=== PATIENT | female | born 1995 | race Caucasian/White ===

== ENCOUNTER → 2021-06-12 | Outpatient (CLI) | payer OTHER | END | disposition home or self-care (01) | LOC: LABWHC1 09:03 | PROVIDERS: ATTEND Obstetrics & Gynecology | DX: Z36.9 Encounter for antenatal screening, unspecified (principal) | CPT/HCPCS: 36415; 82950; 86850; 86900; 86901 ==

== ENCOUNTER 2021-07-26 10:45 | Outpatient (CLI) | payer OTHER ==
[2021-07-26 15:33] VITALS: BP 132/81; PULSE 87; RESP 16; TEMP 98
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
== END 2021-07-26 11:40 | disposition home or self-care (01) ==
LOC: FBPOP 10:45
PROVIDERS: ATTEND Obstetrics & Gynecology
DX: Z04.3 Encounter for examination and observation following other accident (principal)
CPT/HCPCS: 59025; G0463; 99213

== ENCOUNTER 2021-08-10 06:17 | Inpatient (IN) | payer OTHER ==
[2021-08-10] MEDS ORDERED: OXYTOCIN 10 UNIT/ML 1 ML VIAL IM PRN (06:46)
[2021-08-10] MEDS ORDERED: TERBUTALINE 1 MG/ML VIAL SQ PRN (06:46)
[2021-08-10] MEDS ORDERED: CARBOPROST TROMETHAMINE 250 MCG/ML 1 ML AMP IM PRN (06:46)
[2021-08-10] MEDS ORDERED: METHYLERGONOVINE 0.2 MG/ML 1 ML AMP IM PRN (06:46)
[2021-08-10] MEDS ORDERED: LIDOCAINE 1% (PF) 10 MG/ML (30 ML SDV) SQ PRN (06:46)
[2021-08-10] MEDS ORDERED: PENICILLIN G POTASSIUM 5,000,000 UNIT in DEXTROSE 5% IN WATER 100 ML IVPB STA ×2 (06:46)
[2021-08-10] MEDS: LACTATED RINGERS 1,000 ML IV SCH ×2 (06:58→11:14)
[2021-08-10] MEDS ORDERED: OXYTOCIN 30 UNITS/500 ML NS 30 UNIT in SALINE 1 500ML.BAG IV SCH (07:00)
[2021-08-10 07:37] LABS: Basophils % (A) 0 %; Eosinophils % (A) 1 %; HCT 35.5 % (34.0-46.0); Lymphocytes # (A) 0.9 k/uL (1.0-4.8); Lymphocytes % (A) 15 %; MCH 32.2 pg (25.0-35.0); MCHC 33.7 g/dL (31.0-37.0); MCV 95.6 fL (80.0-100.0); Mean Platelet Volume 12.4; Monocytes # (A) 0.3 k/uL (0-1.0); Monocytes % (A) 6 %; Neutrophils # (A) 4.8 k/uL (1.3-7.7); Neutrophils % (A) 77 %; Platelet Count 114 k/uL (150-450); RBC 3.71 m/uL (3.80-5.40); RDW 13.3 % (11.5-15.5); WBC 6.2 k/uL (3.8-10.6)
--- NOTE | 2021-08-10 08:03 | P.HPOB ---
History of Present Illness H&P Date: 08/10/21 Chief Complaint: Here for induction of labor with twins at 38 weeks gestation This is a 26-year-old white female 2 para 0010 EDC 08/24/2021 at 38 weeks gestation who presents with known dichorionic diamniotic twins, vertex vertex, for induction of labor. She is having mild spontaneous uterine contractions. Both fetuses have been active. Past surgical history significant for voluntary termination of in 2019, wisdom teeth extracted in 2010. Past medical history is significant for vasovagal syncope, and bicornuate uterus. Current medications vitamins daily, baby aspirin daily. Family history is significant for heart disease, hypertension, lymphoma, colon cancer, bladder cancer, thyroid disease, stomach cancer, dementia. Social history patient is single, father of the baby is present and involved. She rarely smokes marijuana, none with . She denies tobacco alcohol or drug use. ALLERGIES none known. history is significant for blood type O-, father of the baby is negative as well. Pap smear, gonorrhea and chlamydia cultures, urine culture, HIV testing, hepatitis B surface antigen all negative. Antibody screen negative. Group B strep cultures positive. One-hour Glucola 107. On exam patient is 5 foot 8 inches, 192 pounds, vital signs are stable and she is afebrile. The general physical exam is within normal limits, no peripheral edema, chest is clear. Cervix is 1 cm dilated, 70% effaced, -1 station, vertex presentation. Artificial amniorrhexis reveals clear fluid. Bedside ultrasound reveals vertex vertex presentation. heart rate is reactive on both twins. Impression: 38 week intrauterine , known dichorionic, diamniotic twins, all signs reassuring, here for elective induction of labor. Positive group B strep cultures. Plan: Penicillin G prophylaxis has been started and will continue per hospital protocol. Oxytocin per hospital protocol. Continue close maternal and surveillance. Plan is for delivery in the operating room, with anesthesia present, second live ammunition inspector present, ultrasound present to monitor twin B upon delivery of a. Patient and her partner both understand the multiple risks involved in vaginal delivery of twins, all questions answered. Anticipate normal spontaneous vaginal deliveries 2. Analgesic options reviewed. Review of Systems Constitutional: Reports as per HPI Past Medical History History of Any Multi-Drug Resistant Organisms: None Reported Smoking Status: Never smoker Medications and Allergies Home Medications Medication Instructions Recorded Confirmed Type Aspirin 81 mg PO DAILY 07/26/21 08/10/21 History Pnv No.154/Iron Fum/Folic Acid 1 each PO DAILY 07/26/21 08/10/21 History [ Plus Vitamin Tablet] Allergies Allergy/AdvReac Type Severity Reaction Status Date / Time ibuprofen AdvReac Nausea & Verified 08/10/21 06:45 Vomiting Exam Intake and Output 08/09/21 08/10/21 08/10/21 22:59 06:59 14:59 Other: Weight 87.09 kg See dictation under HPI. Results Result Diagrams: 08/10/21 06:45 Abnormal Lab Results - Last 24 Hours (Table) 08/10/21 Range/Units 06:45 RBC 3.71 L (3.80-5.40) m/uL Assessment and Plan Assessment: 38 week intrauterine , known dichorionic diamniotic twins, here for induction of labor, all signs reassuring. Positive group B strep cultures noted. Plan: Penicillin G per hospital protocol. Oxytocin per hospital protocol. Continue close maternal and surveillance. Plan is for delivery in the operating room with anesthesia present, double set up, ultrasound also present to monitor twin B. All risks and benefits of our plan have been thoroughly discussed in detail. All questions answered. Time with Patient: Greater than 30
[2021-08-10 08:57] LABS: Large Platelets Present
[2021-08-10] MEDS ORDERED: BUTORPHANOL 1 MG/ML 1 ML VIAL IV PRN (10:05)
[2021-08-10] MEDS ORDERED: SODIUM CHLORIDE 0.9% 100 ML BAG ONE (10:50)
[2021-08-10] MEDS ORDERED: fentaNYL (PF) 50 MCG/ML 5 ML AMP ONE (10:50)
[2021-08-10] MEDS ORDERED: ROPIVACAINE 5MG/ML 20ML VIAL ONE (10:50)
[2021-08-10] MEDS: PENICILLIN G POTASSIUM 2,500,000 UNIT in DEXTROSE 5% IN WATER 100 ML IVPB SCH ×6 (11:20→22:24)
[2021-08-10] MEDS ORDERED: diphenhydrAMINE 50 MG CAP PO PRN (16:46)
[2021-08-10] MEDS ORDERED: diphenhydrAMINE 25 MG CAP PO PRN (16:46)
[2021-08-10] MEDS ORDERED: HYDROCORTISONE 2.5% RECTAL CREAM 30 GM TUBE RECTAL PRN (16:46)
[2021-08-10] MEDS ORDERED: diphenhydrAMINE ELIXIR 25 MG/10 ML CUP PO PRN (16:46)
[2021-08-10] MEDS ORDERED: LANOLIN CREAM 5 GM TUBE TOPICAL PRN (16:46)
[2021-08-10] MEDS ORDERED: BENZOCAINE/MENTHOL SPRAY 1 GM/SPRAY AEROSOL TOPICAL PRN (16:46)
[2021-08-10] MEDS ORDERED: ZOLPIDEM 5 MG TAB PO PRN (16:46)
[2021-08-10] MEDS ORDERED: diphenhydrAMINE 50 MG/ML 1 ML VIAL IVP PRN ×2 (16:46)
[2021-08-10] MEDS ORDERED: SIMETHICONE 80 MG CHEWABLE PO PRN (16:46)
--- NOTE | 2021-08-10 16:46 | P.PROBDLV ---
Vaginal Delivery Note - . Vaginal Delivery Note: This is a 26-year-old white female 2 para 0010 EDC 08/24/2021 at 38 weeks gestation with known dichorionic diamniotic twins who presented for induction for same. otherwise unremarkable, group B strep cultures positive. Patient and her were counseled thoroughly and elected to proceed with vaginal delivery. Penicillin G prophylaxis was instituted and patient received 2 doses. Oxytocin was started and titrated per hospital protocol. Artificial amniorrhexis of baby A revealed clear fluid. Internal scalp lead was applied. At all times heart tones were reassuring on both twins throughout the first and second stages of labor. Epidural was placed per her request when she became uncomfortable. Patient became completely dilated and was brought back to the operating room under double setup for delivery. Anesthesia staff present, ultrasound also present. The perineal body was prepped and draped in usual sterile fashion. Baby A's head delivered occiput anterior and he restituted accordingly. There was a nuchal cord 1 that was reduced. Patient was officially delivered of a liveborn baby a at 1615 hrs. the oropharynx, nasopharynx, and external nares were thoroughly bulb suction. Umbilical cord was doubly clamped and ligated, he was handed to waiting nurses for evaluation where scores of 8 and 9 were given, Dr. Wayne ambulance attendant in attendance. Ultrasound verified baby B remained vertex. Artificial amniorrhexis of the also revealed clear fluid. When uterine contractions were appropriate, patient once again pushed successfully. Baby delivered in the occiput anterior position and restituted accordingly. No nuchal cord noted. Oropharynx, nasopharynx and external nares were all bulb suctioned thoroughly. Patient officially delivered her second liveborn male at 1625 hrs. Umbilical cord was doubly clamped and ligated, he too was handed to waiting pediatricians for evaluation where scores of 7 and 9 at one and 5 minutes respectively were given. Placentas delivered spontaneously, inspected and noted to be intact with trivascular cord at 1626 hrs. The umbilical cords were marked a and B and it was sent to pathology for evaluation. Uterus is then massaged. Careful inspection of the c ervix, vagina, perineum, periurethral, and perirectal areas revealed a small first-degree labial laceration that was repaired in the usual fashion using a [id number] suture of 3-0 Vicryl suture. Total estimated blood loss 300 mL's. Uterus is firm and in the midline upon completion of delivery. All sponge needle and enhancement counts are correct. Patient is requesting circumcision for her infant son's. Baby A weighed 5 pounds 6.4 ounces or 2450 g, baby B weighs 5 lbs. 13 oz. or 2650 g.
--- NOTE | 2021-08-10 16:48 | US ---
EXAMINATION TYPE: US OB limited DATE OF EXAM: 08/10/2021 COMPARISON: NONE CLINICAL HISTORY: assess for position for twin delivery. Position check for BABY B after BABY A delivery EXAM PERFORMED: Transabdominal (TA) POSITION: Vertex BABY B in cephalic position after deliver of BABY A IMPRESSION: Limited exam. Findings above.
[2021-08-10] MEDS ORDERED: IBUPROFEN 600 MG TAB PO SCH (17:00)
[2021-08-10] MEDS: ACETAMINOPHEN TAB 325 MG TAB PO PRN (19:52)
[2021-08-10] MEDS: SENNOSIDES-DOCUSATE SODIUM 1 EACH TAB PO SCH (20:25)
[2021-08-11 01:43] VITALS: RESP 16
--- NOTE | 2021-08-11 08:03 | P.PN ---
Subjective Progress Note Date: 08/11/21 Principal diagnosis: day #1 Slept well. Minimal lochia rubra. No pain. Breast-feeding going well. Objective - Vital Signs Vital signs: Vital Signs Temp 98.5 F 08/11/21 04:00 Pulse 56 L 08/11/21 04:00 Resp 16 08/11/21 04:00 BP 122/78 08/11/21 04:00 Pulse Ox 97 08/11/21 04:00 Intake & Output 08/10/21 08/11/21 08/11/21 18:59 06:59 18:59 Intake Total 1185.9 Output Total 100 Balance 1085.9 Weight 87.09 kg Intake: IV 1000 Intake, IV Titration 185.9 Amount Oxytocin 30 Units/500 ml 185.9 Ns 30 unit In Saline 1 500ml.bag @ Per Protocol IV .Q0M [facility] Rx#:[id number] Output: Urine 100 Other: # Voids 2 1 - Constitutional General appearance: Present: average body habitus, cooperative - EENT Eyes: Present: PERRLA ENT: Present: hearing grossly normal - Neck Neck: Present: normal ROM - Respiratory Respiratory: bilateral: CTA - Cardiovascular Rhythm: regular - Gastrointestinal General gastrointestinal: Present: normal bowel sounds - Integumentary Integumentary: Present: normal - Neurologic Neurologic: Present: CNII-XII intact - Musculoskeletal Musculoskeletal: Present: gait normal, strength equal bilaterally - Psychiatric Psychiatric: Present: A&O x's 3, appropriate affect, intact judgment & insight - Labs CBC & Chem 7: 08/10/21 06:45 Labs: Abnormal Lab Results - Last 24 Hours (Table) 08/10/21 Range/Units 06:45 Plt Count 114 L (150-450) k/uL Lymphocytes # 0.9 L (1.0-4.8) k/uL Assessment and Plan Assessment: Doing well first day. Plan: Continue care. Patient requesting assistance with . Circumcision on both babies this morning. Likely discharge home tomorrow. Time with Patient: Less than 30
[2021-08-11] MEDS: SENNOSIDES-DOCUSATE SODIUM 1 EACH TAB PO SCH ×2 (09:44→19:45)
[2021-08-11] MEDS: ACETAMINOPHEN TAB 325 MG TAB PO PRN ×2 (13:20→19:45)
[2021-08-12 00:21] VITALS: TEMP 97.7
[2021-08-12] MEDS: ACETAMINOPHEN TAB 325 MG TAB PO PRN ×2 (04:39→12:01)
[2021-08-12] MEDS: SENNOSIDES-DOCUSATE SODIUM 1 EACH TAB PO SCH (08:14)
[2021-08-12 10:30] VITALS: BP 119/79; PULSE 89
--- NOTE | 2021-08-12 10:42 | P.DS ---
Providers Date of admission: 08/10/21 06:17 Expected date of discharge: 08/12/21 Attending physician: Miriam Mobley Primary care physician: Stated None - Discharge Diagnosis(es) (1) Dichorionic diamniotic twin Current Visit: Yes Status: Acute (2) GBS carrier Current Visit: Yes Status: Acute (3) Normal spontaneous vaginal delivery Current Visit: Yes Status: Acute (4) Perineal laceration with delivery, first degree Current Visit: Yes Status: Acute Hospital Course: This is a 26 year old 2 now para 2012 woman who was admitted at 38 weeks gestation for induction of labor. She has a dichorionic diamniotic twin gestation in the vertex vertex presentation. Following admission she received group B strep prophylactic antibiotics. She received oxytocin and artificial rupture of membranes of twin a. She went on to receive an epidural anesthetic. She then had a spontaneous vaginal delivery of both twin A and twin B. Please see the delivery summary for details. Infants were both boys A weighing 6 lbs. 4 oz., B weighing 5 lbs. 13 oz. Both infants were circumcised on day #1. By day #2 the patient is ambulating and voiding without difficulty. She has mild discomfort of the perineum. Her lochia is decreasing. She is breast-feeding successfully however one twin is tongue tied and will have that addressed prior to discharge. The patient is otherwise stable for discharge with routine instructions for care and follow-up. Procedures: Epidural anesthetic, normal spontaneous vaginal delivery twins Patient Condition at Discharge: Good Plan - Discharge Summary New Discharge Prescriptions: New Acetaminophen Tab [Tylenol] 650 mg PO Q4HR PRN tab PRN Reason: Mild Pain Or Fever >= 100.5 Simethicone Chew [Mylicon Chew] 80 mg PO PCHS PRN tab PRN Reason: Indigestion Discontinued Aspirin 81 mg PO DAILY No Action Pnv No.154/Iron Fum/Folic Acid [ Plus Vitamin Tablet] 1 each PO DAILY Discharge Medication List Pnv No.154/Iron Fum/Folic Acid [ Plus Vitamin Tablet] 1 each PO DAILY 07/26/21 [History] Acetaminophen Tab [Tylenol] 650 mg PO Q4HR PRN tab 08/12/21 [Rx] Simethicone Chew [Mylicon Chew] 80 mg PO PCHS PRN tab 08/12/21 [Rx] Follow up Appointment(s)/Referral(s): Miriam Mobley MD [STAFF PHYSICIAN] - 6 Weeks Activity/Diet/Wound Care/Special Instructions: Follow-up in the office in 6 weeks . Call with any concerning signs or symptoms including heavy vaginal bleeding, severe abdominal pain, fever greater than 101, swelling or redness of the lower extremities, foul vaginal discharge, or signs of depression. Nothing in the vagina for 6 weeks after delivery, specifically no intercourse. Discharge Disposition: HOME SELF-CARE
== END 2021-08-12 12:40 | disposition home or self-care (01) | DRG 807 ==
LOC: 4FBP 06:17
PROVIDERS: ADMIT Obstetrics & Gynecology; ATTEND Obstetrics & Gynecology
PROC: 10E0XZZ Delivery of Products of Conception, External Approach (ICD-10-PCS; principal; 2021-08-10)
PROC: 0HQ9XZZ Repair Perineum Skin, External Approach (ICD-10-PCS; 2021-08-10)
PROC: 10907ZC Drainage of Amniotic Fluid, Therapeutic from Products of Conception, Via Natural or Artificial Opening (ICD-10-PCS; 2021-08-10)
PROC: 3E033VJ Introduction of Other Hormone into Peripheral Vein, Percutaneous Approach (ICD-10-PCS; 2021-08-10)
DX: O30.043 Twin pregnancy, dichorionic/diamniotic, third trimester (principal); Z37.2 Twins, both liveborn; O99.824 Streptococcus B carrier state complicating childbirth; O34.03 Maternal care for unspecified congenital malformation of uterus, third trimester; O69.81X1 Labor and delivery complicated by cord around neck, without compression, fetus 1; Z3A.38 38 weeks gestation of pregnancy; O70.0 First degree perineal laceration during delivery; Z79.82 Long term (current) use of aspirin; Z80.0 Family history of malignant neoplasm of digestive organs; Z80.52 Family history of malignant neoplasm of bladder; Z80.7 Family history of other malignant neoplasms of lymphoid, hematopoietic and related tissues; Z82.49 Family history of ischemic heart disease and other diseases of the circulatory system
CPT/HCPCS: 76815; 85025; 86850; 86900; 86901